=== PATIENT | male | born 1995 ===

== ENCOUNTER 2025-02-24 20:17 | Emergency (ER) | payer SELFPAY ==
[~2025-02-24] VITALS: Ht 157.5 cm; Wt 65.9 kg
[2025-02-24] MEDS ORDERED: TETANUS-DIPTH-ACEL PERTUSSIS 0.5ML SYR Tdap IM ONE (21:45)
[2025-02-24] MEDS: cefTRIAXone SOD 1,000 MG VL IM ONE (23:08)
[2025-02-24] MEDS: OXYCODONE W/ ACETAMINOPHEN 5/325MG TABLET PO ONE (23:09)
--- NOTE | 2025-02-24 23:40 | ED.PDOC ---
History of Present Illness(SKN HPI Comments 29 y/o M presents s/p dog bite. Patient endorses on being attacked by his pet dog, while playing with it, earlier, this evening. Patient reports on sustaining a multiple wounds that extend from his left jaw line and both forearms and right wrists. Bleeding controlled. Denies any lightheadedness, weakness, fever, chills, or further associated symptoms. Chief Complaint: Animal Bite Time Seen by MD: 21:40 History of Present Illness: Nurses Notes, Medications, Allergies Allergies: Coded Allergies: NO KNOWN ALLERGIES (Unverified , 02/24/25) Home Meds Active Scripts Ibuprofen (Ibuprofen) 800 Mg Tab, 800 MG PO Q8HP PRN for 7 Days, #21 TAB Prov:FRANK OTT 02/24/25 Amoxicillin & Pot Clavulanate (AUGMENTIN TABLET) 875 Mg Tb, 875 MG PO BID for 7 Days, #14 TAB Prov:FRANK OTT 02/24/25 Tetanus Jejnst-Yuscgfdegb-Llqd (Adacel) Inj, 0.5 ML IM ONCE for 1 Day, #1 INJ Prov:TRUFRANK Ag 02/24/25 Information Source: Patient Mode of Arrival: Ambulatory Severity: Moderate Timing: Hours Duration: Since onset Prehospital treatment: None Past Medical History PAST MEDICAL HISTORY: Denies Surgical History: Denies all surgeries Family History Family History: Unknown Social History Smoker: Cigarettes Alcohol: Occasionally Drugs: Denies Drug Use Lives In: Home All Other Systems: Reviewed and Negative (Comprehensive systems review obtained and negative except for what is stated in the HPI.) Physical Exam General Appearance: No Apparent Distress, Normal HEENT: Normal ENT Inspection, Pharynx Normal, TMs Normal Neck: Full Range of Motion, Non-Tender, Normal, Normal Inspection Respiratory: Chest Non-Tender, Lungs Clear, No Accessory Muscle Use, No Respiratory Distress, Normal Breath Sounds Cardiovascular: No Edema, No JVD, No Murmur, No Gallop, Normal Peripheral Pulses, Regular Rate/Rhythm Breast Exam: Deferred Gastrointestinal: No Organomegaly, Non Tender, No Pulsatile Mass, Normal Bowel Sounds, Soft Genitalia: Deferred Pelvic: Deferred Rectal: Deferred Extremities: No calf tenderness, Normal capillary refill, Normal inspection, Normal range of motion, Non-tender, No pedal edema Musculoskeletal : Apperance: Normal Neurologic: Alert, 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 Was a procedure done?: Yes Sedation Sedation?: No Laceration Repair : Location radial, lateral aspect of right wrist Length 2.5 cm Anesthetic: Lidocaine, Without epi Laceration Repair Prep: Saline, Shur-Clens, by Irrigation, Manual Scrub Laceration Repair Wound Comple: epidermis/dermis repair Laceration Repair: Number of sutures (3x 3.0 sutures ) Informed consent obtained: Yes Risks, benefits, and alternati: Yes Differential Diagnosis (INTG) Differential Diagnosis: Laceration, Puncture Wound Differential Diagnosis: Abrasion, Lacerations, Neurovascular Injury, Retained Foreign Body Differential Diagnosis: Cellulitis, Laceration, Puncture Wound, Retained Foreign Body X-Ray, Labs, Meds, VS Vital Signs Date Time Temp Pulse Resp B/P (MAP) Pulse Ox O2 Delivery O2 Flow Rate FiO2 02/25/25 00:00 95 18 96 Room Air 02/25/25 00:00 98.8 95 18 121/73 (89) 96 98.8 02/24/25 20:17 97.9 86 18 139/115 97 97.9 Current Medications Medications (Trade) Dose Ordered Sig/Mikhail Route Start Time Stop Time Status Last Admin Oxycodone/ Acetaminophen (Percocet 5/ 325MG Tablet) 2 tab ONCE ONCE PO 02/24/25 21:45 02/24/25 21:46 DC 02/24/25 23:09 Ceftriaxone Sodium (Rocephin) 1,000 mg ONCE ONCE IM 02/24/25 21:45 02/24/25 21:46 DC 02/24/25 23:08 Time of 1ST Reevaluation: 22:20 Reevaluation 1ST: Unchanged Time of 2ND Reevaluation: 23:41 Reevaluation 2ND: Improved Patient Education/Counseling: Treatment, Need For Follow Up Family Education/Counseling: No Family Present SEPSIS Sepsis Screen Date sepsis recognized/suspect: Feb 24, 2025 Time Sepsis recognized/suspect: 2016 Recent Procedure: No On Antibiotic Therapy: No Respiratory Rate >20: No Heart Rate >90: No Temp<36 C (96.8 F) or >38.3 C: No SBP <90 or MAP <65 mmHG: No New Acute Mental Status Change: No Is the patient on CPAP, BIPAP,: No Physician Orders R Hand 3 View Xray (02/24/25 21:44) L Forearm Xray (02/24/25 21:44) Vital Signs Date Time Temp Pulse Resp B/P (MAP) Pulse Ox O2 Delivery O2 Flow Rate FiO2 02/25/25 00:00 95 18 96 Room Air 02/25/25 00:00 98.8 95 18 121/73 (89) 96 98.8 02/24/25 20:17 97.9 86 18 139/115 97 97.9 Medications Medications Dose Ordered Sig/Mikhail Route Start Time Stop Time Status Last Admin Dose Admin Ceftriaxone Sodium 1,000 mg ONCE ONCE IM 02/24/25 21:45 02/24/25 21:46 DC 02/24/25 23:08 Oxycodone/ Acetaminophen 2 tab ONCE ONCE PO 02/24/25 21:45 02/24/25 21:46 DC 02/24/25 23:09 Departure 1 Departure Time of Disposition: 23:47 Impression: Primary Impression: Dog bite of hand Qualified Codes: S61.451A - Open bite of right hand, initial encounter; W54.0XXA - Bitten by dog, initial encounter Additional Impression: Dog bite of face Qualified Codes: S01.85XA - Open bite of other part of head, initial encounter; W54.0XXA - Bitten by dog, initial encounter Disposition: HOME / SELF CARE / HOMELESS Condition: Stable e-Prescriptions Ibuprofen (Ibuprofen) 800 Mg Tab 800 MG PO Q8HP PRN for 7 Days, #21 TAB Prov: FRANK OTT 02/24/25 Amoxicillin & Pot Clavulanate (AUGMENTIN TABLET) 875 Mg Tb 875 MG PO BID for 7 Days, #14 TAB Prov: FRANK OTT 02/24/25 Tetanus Vaeqem-Lwpyorfsfu-Rufl (Adacel) Inj 0.5 ML IM ONCE for 1 Day, #1 INJ Prov: FRANK OTT 02/24/25 Discharged With: Self Critical Care Note Critical Care Time?: No Stability Stability form required: No Heart Score Heart Score: Heart Score Response (Comments) Value History N/A 0 EKG N/A 0 Age N/A 0 Risk Factors N/A 0 Troponin N/A 0 Total 0 I personally scribed for ER ([email or web address]) on 02/24/25 at 23:40. Electronically submitted by Nazario Wong [email or web address]). ER Feb 24, 2025 23:40 FRANK OTT [facility] Feb 24, 2025 23:51
[2025-02-24] MEDS ORDERED: AUG875T PO (23:51)
[2025-02-24] MEDS ORDERED: [UNRECOGNIZED DRUG - CODE] IM (23:51)
[2025-02-24] MEDS ORDERED: IBUP-1456 PO (23:51)
[2025-02-25] VITALS: BP 121/73; PULSE 95; RESP 18; TEMP 98.8; O2SAT 96
--- NOTE | 2025-02-25 00:02 | DVH ---
EXAM: XY L FOREARM XRAY HISTORY: DOG BITE COMPARISON: None TECHNIQUE: AP and lateral views of the left forearm were performed. FINDINGS/IMPRESSION: No acute fracture of the left radius or ulna. No dislocations. Mild soft tissue edema. No radiograph foreign body
--- NOTE | 2025-02-25 00:04 | DVH ---
INDICATION: DOG BITE TECHNIQUE: 4 radiographic views of the right hand were obtained. COMPARISON: None FINDINGS/IMPRESSION: Scattered radiodensities about the medial soft tissues of the wrist may reflect contusion/injury. Mil d diffuse soft tissue edema. No acute fracture dislocations.
== END 2025-02-25 | disposition home or self-care (01) ==
LOC: ER 20:17
DX: S00.87XA Other superficial bite of other part of head, initial encounter (principal); S50.871A Other superficial bite of right forearm, initial encounter; S50.872A Other superficial bite of left forearm, initial encounter; S60.872A Other superficial bite of left wrist, initial encounter; S60.871A Other superficial bite of right wrist, initial encounter; F17.210 Nicotine dependence, cigarettes, uncomplicated; W54.0XXA Bitten by dog, initial encounter; Y93.89 Activity, other specified; Y92.89 Other specified places as the place of occurrence of the external cause; Y99.8 Other external cause status
CPT/HCPCS: 12001; 73090; 73130; 96372; 99284; J0696